=== PATIENT | male | born 1990 | race American Indian/Alaskan Native ===

== ENCOUNTER 2020-10-08 12:58 | Outpatient (CLI) | payer OTHER | END 2020-10-08 19:35 | disposition home or self-care (01) | LOC: RAD 12:58 | PROVIDERS: ATTEND Nurse Practitioner Family | DX: R94.31 Abnormal electrocardiogram [ECG] [EKG] (principal); R07.9 Chest pain, unspecified; I30.9 Acute pericarditis, unspecified; R10.31 Right lower quadrant pain ==